=== PATIENT | female | born 1985 | race Caucasian/White ===

== ENCOUNTER 2022-01-17 12:23 | Emergency (ER) | payer MEDICARE, OTHER ==
[2022-01-17 13:04] LABS: BASOPHIL 0.8 % (0-2); EOSINOPHIL 1.5 % (0-5); HGB 15.1 g/dl (12.5-16.0); MCH 27.7 pg (25.0-31.0); MCHC 32.1 g/dL (32.0-36.0); MCV 86.1 fL (78.0-100.0); MONOCYTE 6.7 % (0-12); MPV 9.3 fL (6.0-9.5); NEUTROPHIL 81.6 % (41-80); NRBC 0; PLT 421 K/uL (150-400); RBC 5.46 M/uL (4.20-5.40); RDW 14.2 % (11.5-14.0); WBC 13.7 K/uL (4.0-10.5)
[2022-01-17 13:37] LABS: ALBUMIN 3.9 g/dL (3.4-5.0); BILIRUBIN - TOTAL 0.3 mg/dL (0.2-1.0); BUN/CREAT RATIO (CALC) 18.8 RATIO; CREATININE 0.69 mg/dL (0.51-0.95); GLOBULIN (CALCULATION) 3.4 g/dL; LACTIC ACID 0.9 mmol/L (0.4-1.9); POTASSIUM 4.2 mmol/L (3.5-5.1); TOTAL PROTEIN 7.3 g/dL (6.4-8.2)
[2022-01-17 13:42] LABS: CLARITY CLEAR (CLEAR); COLOR YELLOW (YELLOW)
[2022-01-17 13:43] LABS: BILIRUBIN NEGATIVE (NEGATIVE); BLOOD NEGATIVE Ery/uL (NEGATIVE); GLUCOSE (U) NORMAL (NORMAL); LEUKOCYTES 1+ Leu/uL (NEGATIVE); NITRITE NEGATIVE (NEGATIVE); PROTEIN NEGATIVE (NEGATIVE); SPECIFIC GRAVITY > 1.030 (1.001-1.030); UROBILINOGEN 0.2 mg/dL (0.2-1.0); pH 5.5 (5.0-9.0)
[2022-01-17 13:45] LABS: BACTERIA TRACE
[2022-01-17 15:38] LABS: CORONAVIRUS 2019 SARS-COV-2 NEGATIVE (NEGATIVE); INFLUENZA A NAA NEGATIVE (NEGATIVE)
[2022-01-17] MEDS ORDERED: AMOX TR-K CLV1 EAC4 PO (15:57)
[2022-01-17] MEDS ORDERED: ONDANSETRON ODT4 MG PO (15:57)
== END 2022-01-17 16:16 | disposition home or self-care (01) ==
LOC: FER 12:23
PROVIDERS: Physician Assistant
DX: J18.9 Pneumonia, unspecified organism (principal); Z87.891 Personal history of nicotine dependence; Z20.822 Contact with and (suspected) exposure to COVID-19
CPT/HCPCS: 36415; 71045; 80053; 81001; 83605; 83690; 85025; 87088; J2405; J7030; Q9967; U0002